=== PATIENT | female | born 1990 | race Caucasian/White ===

== ENCOUNTER 2016-12-08 10:45 | Emergency (ER) | payer BC, OTHER ==
[~2016-12-08 10:45] MED LIST: OXYMETAZOLINE 0.05% NASL SPRAY 15 ML ONE
[2016-12-08] MEDS ORDERED: OXYMETAZOLINE 0.05% NASL SPRAY 15 ML NASAL STA (13:17)
--- NOTE | 2016-12-08 13:17 | ED ---
ENT HPI - General Chief complaint: ENT Stated complaint: nose bleed Time Seen by Provider: 12/08/16 13:05 Source: patient, RN notes reviewed Mode of arrival: ambulatory Limitations: no limitations - History of Present Illness Initial comments: 26 yo female presents to the ER with a chief complaint of epistaxis. Patient states that she had much congestion. Patient states she's been running her nose is been having sneezing. Patient states that she'll get some blood with this that she was concerned. Patient denies any history of this before. There is no falls or injuries. She states that she Soft tissue just concerned about the bleeding so she thought that she should be evaluated. Patient states she is not currently having any other symptoms at this time. Patient denies any recent fever, chills, shortness of breath, chest pain, back pain, abdominal pain , nausea vomiting, numbness or tingling, dysuria or hematuria, constipation or diarrhea, headaches or visual changes, or any other current symptoms. - Related Data Home Medications Medication Instructions Recorded Confirmed No Known Home Medications [No 01/01/14 01/01/14 Known Home Medications] Allergies Allergy/AdvReac Type Severity Reaction Status Date / Time No Known Allergies Allergy Verified 01/01/14 09:18 Review of Systems ROS Statement: Those systems with pertinent positive or pertinent negative responses have been documented in the HPI. ROS Other: All systems not noted in ROS Statement are negative. Past Medical History Past Medical History: No Reported History History of Any Multi-Drug Resistant Organisms: None Reported Past Surgical History: No Surgical Hx Reported Past Psychological History: No Psychological Hx Reported Smoking Status: Never smoker Past Alcohol Use History: None Reported Past Drug Use History: None Reported General Exam - General Exam Comments Initial Comments: General exam: Alert, active, comfortable in no apparent distress Head: Normocephalic Eyes: Normal reaction of pupils, equal size, normal range of extraocular motion Ears: normal external ear canals, pink tympanic membranes with normal cone of light Nose: Patient does appear to have evidence of previously there is currently controlled to bilateral Debbie box plexus Throat: no erythema or exudates with normal sized tonsils Neck: no masses, no nuchal rigidity Chest: no chest wall deformity Lungs: equal air entry with no crackles or wheeze CVS: S1 and S2 normal with no audible mumurs, regular rhythm Abdomen: no hepatosplenomegaly, normal bowel sounds, no guarding or rigidity Spine: no scoliosis or deformity Skin: no rashes Neurological: No focal deficits, tone is normal in all 4 extremities Limitations: no limitations Course Vital Signs 12/08/16 10:49 Temperature 97.4 F L Pulse Rate 79 Respiratory 18 Rate Blood Pressure 132/83 O2 Sat by Pulse 100 Oximetry Medical Decision Making - Medical Decision Making 36-year-old female presents emergency department with a chief complaint of epistaxis. At this time we will give the patient aspirin. We discussed nasal clamp. We discussed care for this. We discussed continuing to apply appropriate moisture to the area. We did discuss return parameters and Follow- up. Patient states she understood all questions were answered. She'll be discharged. Disposition Clinical Impression: Epistaxis Disposition: HOME SELF-CARE Condition: Stable Instructions: Nosebleed (ED) Additional Instructions: Please use medication as discussed. Please follow up with family doctor if symptoms have not improved over the next two days. Please return to the emergency room if your symptoms increase or worsen or for any other concerns. Referrals: Dontrell Bangura DO [Primary Care Provider] - 1-2 days Time of Disposition: 13:16
[2016-12-08 13:24] VITALS: BP 130/78; PULSE 84; RESP 20; TEMP 98
== END 2016-12-08 13:24 | disposition home or self-care (01) ==
LOC: EC 10:45
DX: R04.0 Epistaxis (principal)
CPT/HCPCS: 99283

== ENCOUNTER 2017-03-26 11:02 | Emergency (ER) | payer BC ==
--- NOTE | 2017-03-26 11:39 | ED ---
General Adult HPI - General Chief complaint: Extremity Problem,Nontraumatic Stated complaint: feet swelliing Time Seen by Provider: 03/26/17 11:17 Source: patient, RN notes reviewed Mode of arrival: ambulatory Limitations: no limitations - History of Present Illness Initial comments: Patient 26-year-old female who presents emergency room today with a chief complaint of bilateral leg swelling. She does admit to swelling down to her ankle since that there bilaterally tender. She states that there is increased tenderness on the left compared to the right. She denies any injury or trauma. 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 She denies any pain last night when she was working but woke up this morning feeling like this. She denies any other complaints or symptoms at this time. Patient denies any recent fever, chills, shortness of breath, chest pain, back pain, abdominal pain, nausea or vomiting, numbness or tingling, dysuria or hematuria, constipation or diarrhea, headaches or visual changes, or any other complaints. - Related Data Home Medications Medication Instructions Recorded Confirmed No Known Home Medications [No 01/01/14 03/26/17 Known Home Medications] Allergies Allergy/AdvReac Type Severity Reaction Status Date / Time No Known Allergies Allergy Verified 03/26/17 11:31 Review of Systems ROS Statement: Those systems with pertinent positive or pertinent negative responses have been documented in the HPI. ROS Other: All systems not noted in ROS Statement are negative. Past Medical History Past Medical History: No Reported History History of Any Multi-Drug Resistant Organisms: None Reported Past Surgical History: No Surgical Hx Reported Past Psychological History: No Psychological Hx Reported Smoking Status: Never smoker Past Alcohol Use History: None Reported Past Drug Use History: None Reported General Exam - General Exam Comments Initial Comments: General: The patient is awake and alert, in no distress, and does not appear acutely ill. Eye: Pupils are equal, round and reactive to light, extra-ocular movements are intact. No nystagmus. There is normal conjunctiva bilaterally. No signs of icterus. Ears, nose, mouth and throat: There are moist mucous membranes and no oral lesions. Neck: The neck is supple, there is no tenderness or JVD. Cardiovascular: There is a regular rate and rhythm. No murmur, rub or gallop is appreciated. Respiratory: Lungs are clear to auscultation, respirations are non-labored, breath sounds are equal. No wheezes, stridor, rales, or rhonchi. Gastrointestinal: Soft, non-distended, non-tender abdomen without masses or organomegaly noted. There is no rebound or guarding present. No CVA tenderness. Bowel sounds are unremarkable. Musculoskeletal: Full range of motion. Does have bilateral ankle swelling. No bony tenderness. Strength 5/5. Sensation intact. Pulses equal bilaterally 2+ . Neurological: A&O x 3. CN II-XII intact, There are no obvious motor or sensory deficits. Coordination appears grossly intact. Speech is normal. Skin: Skin is warm and dry and no rashes or lesions are noted. Psychiatric: Cooperative, appropriate mood & affect, normal judgment. Limitations: no limitations Course Vital Signs 03/26/17 11:03 Temperature 97.1 F L Pulse Rate 67 Respiratory 16 Rate Blood Pressure 115/61 O2 Sat by Pulse 100 Oximetry Medical Decision Making - Medical Decision Making Case discussed in detail with attending physician Dr. Torres. Patient reexamined at this time shows no signs of distress resting comfortably. Patient labs been reviewed. Negative BNP. Negative CRP. Remaining labs reviewed and are unremarkable. EKG shows normal sinus rhythm. Patient's ultrasound negative for any evidence of DVT. Patient's chest x-rays been reviewed unremarkable. Patient will given a single dose of Lasix here the emergency room discharged home to follow-up the family doctor next 2 days. Advised to elevate her legs. Advised return for any other concerns. - Lab Data Result diagrams: 03/26/17 11:47 03/26/17 11:47 Lab Results 03/26/17 03/26/17 03/26/17 Range/Units 11:47 11:47 11:47 WBC 8.5 (3.8-10.6) k/uL RBC 3.94 (3.80-5.40) m/uL Hgb 12.2 (11.4-16.0) gm/dL Hct 36.1 (34.0-46.0) % MCV 91.8 (80.0-100.0) fL MCH 31.0 (25.0-35.0) pg MCHC 33.8 (31.0-37.0) g/dL RDW 12.8 (11.5-15.5) % Plt Count 288 (150-450) k/uL Neutrophils % 73 % Lymphocytes % 20 % Monocytes % 4 % Eosinophils % 1 % Basophils % 0 % Neutrophils # 6.3 (1.3-7.7) k/uL Lymphocytes # 1.7 (1.0-4.8) k/uL Monocytes # 0.4 (0-1.0) k/uL Eosinophils # 0.1 (0-0.7) k/uL Basophils # 0.0 (0-0.2) k/uL Sodium 140 (137-145) mmol/L Potassium 3.8 (3.5-5.1) mmol/L Chloride 107 (98-107) mmol/L Carbon Dioxide 25 (22-30) mmol/L Anion Gap 8 mmol/L BUN 8 (7-17) mg/dL Creatinine 0.70 (0.52-1.04) mg/dL Est GFR (MDRD) Af Amer >60 (>60 ml/min/1.73 sqM) Est GFR (MDRD) Non-Af >60 (>60 ml/min/1.73 sqM) Glucose 88 (74-99) mg/dL Calcium 9.0 (8.4-10.2) mg/dL Total Bilirubin 0.4 (0.2-1.3) mg/dL AST 24 (14-36) U/L ALT 37 (9-52) U/L Alkaline Phosphatase 61 (38-126) U/L C-Reactive Protein 6.7 (<10.0) mg/L NT-Pro-B Natriuret Pep pg/mL Total Protein 6.1 L (6.3-8.2) g/dL Albumin 3.7 (3.5-5.0) g/dL Urine Color Urine Appearance (Clear) Urine pH (5.0-8.0) Ur Specific Moore (1.001-1.035) Urine Protein (Negative) Urine Glucose (UA) (Negative) Urine Ketones (Negative) Urine Blood (Negative) Urine Nitrite (Negative) Urine Bilirubin (Negative) Urine Urobilinogen (<2.0) mg/dL Ur Leukocyte Esterase (Negative) Urine RBC (0-5) /hpf Urine WBC (0-5) /hpf Ur Squamous Epith Cells (0-4) /hpf Urine Bacteria (None) /hpf Urine Mucus (None) /hpf Urine HCG, Qual Not Detected (Not Detectd) 03/26/17 03/26/17 Range/Units 11:47 11:47 WBC (3.8-10.6) k/uL RBC (3.80-5.40) m/uL Hgb (11.4-16.0) gm/dL Hct (34.0-46.0) % MCV (80.0-100.0) fL MCH (25.0-35.0) pg MCHC (31.0-37.0) g/dL RDW (11.5-15.5) % Plt Count (150-450) k/uL Neutrophils % % Lymphocytes % % Monocytes % % Eosinophils % % Basophils % % Neutrophils # (1.3-7.7) k/uL Lymphocytes # (1.0-4.8) k/uL Monocytes # (0-1.0) k/uL Eosinophils # (0-0.7) k/uL Basophils # (0-0.2) k/uL Sodium (137-145) mmol/L Potassium (3.5-5.1) mmol/L Chloride (98-107) mmol/L Carbon Dioxide (22-30) mmol/L Anion Gap mmol/L BUN (7-17) mg/dL Creatinine (0.52-1.04) mg/dL Est GFR (MDRD) Af Amer (>60 ml/min/1.73 sqM) Est GFR (MDRD) Non-Af (>60 ml/min/1.73 sqM) Glucose (74-99) mg/dL Calcium (8.4-10.2) mg/dL Total Bilirubin (0.2-1.3) mg/dL AST (14-36) U/L ALT (9-52) U/L Alkaline Phosphatase (38-126) U/L C-Reactive Protein (<10.0) mg/L NT-Pro-B Natriuret Pep 46 pg/mL Total Protein (6.3-8.2) g/dL Albumin (3.5-5.0) g/dL Urine Color Yellow Urine Appearance Cloudy H (Clear) Urine pH 7.0 (5.0-8.0) Ur Specific Moore 1.019 (1.001-1.035) Urine Protein Trace H (Negative) Urine Glucose (UA) Negative (Negative) Urine Ketones Negative (Negative) Urine Blood Negative (Negative) Urine Nitrite Negative (Negative) Urine Bilirubin Negative (Negative) Urine Urobilinogen <2.0 (<2.0) mg/dL Ur Leukocyte Esterase Large H (Negative) Urine RBC 1 (0-5) /hpf Urine WBC 7 H (0-5) /hpf Ur Squamous Epith Cells 16 H (0-4) /hpf Urine Bacteria Rare H (None) /hpf Urine Mucus Few H (None) /hpf Urine HCG, Qual (Not Detectd) Disposition Clinical Impression: Leg edema Disposition: HOME SELF-CARE Condition: Good Instructions: Leg Edema (ED) Additional Instructions: Please continue to elevate your legs and follow family doctor the next 2 days. Please return for any other concerns. Referrals: Dontrell Bangura DO [Primary Care Provider] - 1-2 days Time of Disposition: 13:36
[2017-03-26 11:59] LABS: Basophils % (A) 0 %; CH 31.6; CHCM 34.5; Eosinophils # (A) 0.1 k/uL (0-0.7); Eosinophils % (A) 1 %; HCT 36.1 % (34.0-46.0); HDW 2.08; HGB 12.2 gm/dL (11.4-16.0); Luc # (Auto) 0.12; Luc % (Auto) 1; Lymphocytes # (A) 1.7 k/uL (1.0-4.8); Lymphocytes % (A) 20 %; MCHC 33.8 g/dL (31.0-37.0); MCV 91.8 fL (80.0-100.0); Mean Platelet Volume 7.8; Monocytes # (A) 0.4 k/uL (0-1.0); Monocytes % (A) 4 %; Neutrophils # (A) 6.3 k/uL (1.3-7.7); Neutrophils % (A) 73 %; RBC 3.94 m/uL (3.80-5.40); RDW 12.8 % (11.5-15.5); WBC 8.5 k/uL (3.8-10.6)
[2017-03-26 12:03] LABS: Appearance,Urine Cloudy (Clear); Bacteria,Urine Rare /hpf; Bilirubin,Urine Negative (Negative); Glucose,Urine (UA) Negative (Negative); Ketones,Urine Negative (Negative); Leukocyte Esterase,Urine Large (Negative); Mucus,Urine Few /hpf; Nitrite,Urine Negative (Negative); Particle Count 18159; Protein,Urine Trace (Negative); RBC,Urine 1 /hpf (0-5); Specific Gravity,Urine 1.019 (1.001-1.035); Squamous Epithelial Cell,Urine 16 /hpf (0-4); UA Billing (MACRO vs. MICRO) MICRO; Urobilinogen,Urine <2.0 mg/dL (<2.0); WBC,Urine 7 /hpf (0-5)
[2017-03-26 12:27] LABS: ALT 37 U/L (9-52); AST 24 U/L (14-36); Alkaline Phosphatase 61 U/L (38-126); Anion Gap 8 mmol/L; Blood Urea Nitrogen 8 mg/dL (7-17); C Reactive Protein 6.7 mg/L (<10.0); Carbon Dioxide 25 mmol/L (22-30); Chloride 107 mmol/L (98-107); Glucose 88 mg/dL (74-99); Non-African American GFR(MDRD) >60 (>60 ml/min/1.73 sqM); Potassium 3.8 mmol/L (3.5-5.1); Sodium 140 mmol/L (137-145); Total Bilirubin 0.4 mg/dL (0.2-1.3); Total Protein 6.1 g/dL (6.3-8.2)
--- NOTE | 2017-03-26 12:44 | US ---
EXAMINATION TYPE: US venous doppler duplex LE BI DATE OF EXAM: 03/26/2017 12:35 PM COMPARISON: Bilateral lower extremity venous ultrasound September 04, 2012 CLINICAL HISTORY: Pain. SIDE PERFORMED: Bilateral TECHNIQUE: The lower extremity deep venous system is examined utilizing real time linear array sonog jorge with graded compression, doppler sonography and color-flow sonography. VESSELS IMAGED: External Iliac Vein (EIV) Common Femoral Vein Deep Femoral Vein Greater Saphenous Vein * Femoral Vein Popliteal Vein Small Saphenous Vein * Proximal Calf Veins (* superficial vessels) Morbidly obese patient makes evaluation suboptimal. Right Leg: Negative for DVT Left Leg: Negative for DVT Grayscale, color doppler, spectral doppler imaging performed of the deep veins of the lower extremiti es. There is normal flow, compressibility, vascular waveforms. IMPRESSION: No evidence of acute DVT in bilateral lower extremities on current study.
[2017-03-26] MEDS ORDERED: FUROSEMIDE 10 MG/ML 4 ML VIAL IV STA (13:34)
--- NOTE | 2017-03-26 13:35 | XR ---
EXAMINATION TYPE: XR chest 2V DATE OF EXAM: 03/26/2017 COMPARISON: 02/28/2010 INDICATION: Leg swelling TECHNIQUE: Frontal and lateral views of the chest are obtained. FINDINGS: The heart size is normal. The pulmonary vasculature is normal. The lungs are clear. IMPRESSION: 1. No acute pulmonary process.
[2017-03-26 14:10] VITALS: BP 114/59; PULSE 76; RESP 17; TEMP 98.2
== END 2017-03-26 14:10 | disposition home or self-care (01) ==
LOC: EC 11:02
DX: R60.0 Localized edema (principal)
CPT/HCPCS: 99284; 96374; 36415; 93005; 83880; 80053; 85025; 86140; 81001; 81025; 71020; 93970; J1940

== ENCOUNTER 2018-03-16 14:43 | Emergency (ER) | payer BC ==
--- NOTE | 2018-03-16 14:53 | ED ---
Skin/Abscess/FB HPI - General Chief complaint: Skin/Abscess/Foreign Body Stated complaint: bug bite Time Seen by Provider: 03/16/18 14:47 Source: patient, RN notes reviewed, old records reviewed Mode of arrival: ambulatory Limitations: no limitations - History of Present Illness Initial comments: 27-year-old female presents return today. Of a insect bite over the right knee. Patient reports that she started noticed this yesterday. She reports is warm and hot to touch. She reports the area of erythema has been swelling. Patient states that she has had no fevers or chills. She denies any other areas of bites. She reports that the area is pruritic.Patient denies any recent fever, chills, shortness of breath, chest pain, back pain, abdominal pain , nausea vomiting, numbness or tingling, dysuria or hematuria, constipation or diarrhea, headaches or visual changes, or any other current symptoms - Related Data Previous Rx's Medication Instructions Recorded Sulfamethox-Tmp 800-160Mg [Bactrim 1 tab PO DAILY #20 tab 03/16/18 DS 800-160 mg] methylPREDNISolone [Medrol Dose 4 mg PO DIRECTED #1 pack 03/16/18 Pack] Allergies Allergy/AdvReac Type Severity Reaction Status Date / Time No Known Allergies Allergy Verified 03/16/18 14:47 Review of Systems ROS Statement: Those systems with pertinent positive or pertinent negative responses have been documented in the HPI. ROS Other: All systems not noted in ROS Statement are negative. Past Medical History Past Medical History: No Reported History History of Any Multi-Drug Resistant Organisms: None Reported Past Surgical History: No Surgical Hx Reported Past Psychological History: No Psychological Hx Reported Smoking Status: Never smoker Past Alcohol Use History: None Reported Past Drug Use History: None Reported General Exam - General Exam Comments Initial Comments: This Patient is a 27-year-old female. Alert and oriented. No acute distress. Limitations: no limitations General appearance: alert, in no apparent distress Head exam: Present: atraumatic, normocephalic, normal inspection Eye exam: Present: normal appearance, PERRL, EOMI. Absent: scleral icterus, conjunctival injection, periorbital swelling ENT exam: Present: normal exam, mucous membranes moist Neck exam: Present: normal inspection. Absent: tenderness, meningismus, lymphadenopathy Respiratory exam: Present: normal lung sounds bilaterally. Absent: respiratory distress, wheezes, rales, rhonchi, stridor Cardiovascular Exam: Present: regular rate, normal rhythm, normal heart sounds. Absent: systolic murmur, diastolic murmur, rubs, gallop, clicks GI/Abdominal exam: Present: soft, normal bowel sounds. Absent: distended, tenderness, guarding, rebound, rigid Extremities exam: Present: normal inspection, full ROM, normal capillary refill , other (Patient is a 3 cm area of erythema and superficial swelling consistent with cellulitis over the right knee. Area is warm to touch. ). Absent: tenderness, pedal edema, joint swelling, calf tenderness Back exam: Present: normal inspection Neurological exam: Present: alert, oriented X3, CN II-XII intact Psychiatric exam: Present: normal affect, normal mood Skin exam: Present: warm, dry, intact, normal color. Absent: rash Course Vital Signs 03/16/18 14:45 Temperature 98.2 F Pulse Rate 66 Respiratory 18 Rate Blood Pressure 118/70 O2 Sat by Pulse 97 Oximetry Medical Decision Making - Medical Decision Making This Patient is a 7-year-old female presents with redness and swelling over the right knee after a bug bite. Patient was appears to have a cellulitic infection over the area. I did use an ultrasound machine over the area to protect for any abscess. No abscess or drainable fluid filled pocket noted at this time. Patient will be started on some Bactrim and Medrol Dosepak for cough or any antihistamine and ALLERGIC reaction for the redness and swelling. Discussed icing the area. Discussed return parameters. Patient has worsening redness or swelling to return Disposition Clinical Impression: Cellulitis Disposition: HOME SELF-CARE Condition: Good Instructions: Cellulitis (ED), General Allergic Reaction (ED) Additional Instructions: Patient is follow-up with primary care physician. Patient should apply ice over the area. Also use Benadryl and hydrocortisone cream over the area. Anabiotic as prescribed. Return to emergency department if any alarming signs or symptoms occur. Prescriptions: methylPREDNISolone [Medrol Dose Pack] 4 mg PO DIRECTED #1 pack Sulfamethox-Tmp 800-160Mg [Bactrim DS 800-160 mg] 1 tab PO DAILY #20 tab Is patient prescribed a controlled substance at d/c from ED?: No Referrals: Dontrell Bangura DO [Primary Care Provider] - 1-2 days Time of Disposition: 15:07
[2018-03-16 15:18] VITALS: BP 122/78; PULSE 61; RESP 16; TEMP 98.7
== END 2018-03-16 15:18 | disposition home or self-care (01) ==
LOC: EC 14:43
DX: L03.115 Cellulitis of right lower limb (principal); R05 Cough; W57.XXXA Bitten or stung by nonvenomous insect and other nonvenomous arthropods, initial encounter
CPT/HCPCS: 99283

== ENCOUNTER 2018-05-06 07:42 | Emergency (ER) | payer BC ==
[2018-05-06 07:48] VITALS: BP 113/66; PULSE 87; RESP 18; TEMP 97.9
--- NOTE | 2018-05-06 08:03 | ED ---
Lower Extremity Injury HPI - General Chief Complaint: Extremity Injury, Lower Stated Complaint: Knee injury Time Seen by Provider: 05/06/18 07:54 Source: patient, RN notes reviewed Mode of arrival: ambulatory Limitations: no limitations - History of Present Illness Initial Comments: 27-year-old female presents emergency Department chief complaint of right knee pain. Patient states that she was at a basketball court and states her foot stuck she tripped forward with all her weight landing on her right knee. Patient states that she has pain on the lateral posterior aspect of her right knee. She's had no pain in her quadrant hamstring no pain in her calf. Patient states his hurts to walk on her knee. She does have an abrasion but her tetanus is up-to-date. Patient denies any paresthesias denies any head injury no other muscle skeletal injury noted from the fall. - Related Data Previous Rx's Medication Instructions Recorded Ibuprofen [Motrin] 600 mg PO Q8HR PRN #30 tab 05/06/18 Allergies Allergy/AdvReac Type Severity Reaction Status Date / Time No Known Allergies Allergy Verified 05/06/18 08:37 Review of Systems ROS Statement: Those systems with pertinent positive or pertinent negative responses have been documented in the HPI. ROS Other: All systems not noted in ROS Statement are negative. Past Medical History Past Medical History: No Reported History History of Any Multi-Drug Resistant Organisms: None Reported Past Surgical History: No Surgical Hx Reported Past Psychological History: No Psychological Hx Reported Smoking Status: Never smoker Past Alcohol Use History: None Reported Past Drug Use History: None Reported General Exam Limitations: no limitations General appearance: alert, in no apparent distress Head exam: Present: atraumatic, normocephalic, normal inspection Neck exam: Present: normal inspection, full ROM. Absent: tenderness, meningismus, lymphadenopathy Respiratory exam: Present: normal lung sounds bilaterally. Absent: respiratory distress, wheezes, rales, rhonchi, stridor Cardiovascular Exam: Present: regular rate, normal rhythm, normal heart sounds. Absent: systolic murmur, diastolic murmur, rubs, gallop, clicks Extremities exam: Present: other (Right knee posterior lateral aspect area is firm with palpation appears to be hematoma, patient has full range of motion full-strength neurovascular intact there is mild tenderness to the lateral portion pain with varus) Skin exam: Present: warm, dry, intact, normal color. Absent: rash Course Vital Signs 05/06/18 07:46 Temperature 97.9 F Pulse Rate 87 Respiratory 18 Rate Blood Pressure 113/66 O2 Sat by Pulse 98 Oximetry Medical Decision Making - Medical Decision Making 27-year-old female presents emergency from for right knee injury. X-rays were reviewed. There is mild and here soft tissue swelling. Patient physically has pain and swelling in the posterior lateral portion. Patient was placed in knee immobilizer follow-up with orthopedics for an MRI. Return parameters were discussed. Disposition Clinical Impression: Knee sprain Disposition: HOME SELF-CARE Condition: Stable Instructions: Knee Sprain (ED) Additional Instructions: Please return to the Emergency Department if symptoms worsen or any other concerns. Prescriptions: Ibuprofen [Motrin] 600 mg PO Q8HR PRN #30 tab PRN Reason: Pain Is patient prescribed a controlled substance at d/c from ED?: No Referrals: Dontrell Bangura DO [Primary Care Provider] - 1-2 days Pranay Pedraza MD [STAFF PHYSICIAN] - 1-2 days Time of Disposition: 09:02
--- NOTE | 2018-05-06 08:19 | XR ---
EXAMINATION TYPE: XR knee complete RT DATE OF EXAM: 05/06/2018 COMPARISON: NONE HISTORY: 27-year-old female with fall and pain TECHNIQUE: 3 views FINDINGS: Mild anterior soft tissue swelling. No significant knee joint effusion. No acute fracture, subluxatio n, or dislocation seen. Extensor mechanism appears intact. IMPRESSION: Mild anterior soft tissue swelling. No acute osseous abnormality seen.
== END 2018-05-06 09:13 | disposition home or self-care (01) ==
LOC: EC 07:42
DX: S83.91XA Sprain of unspecified site of right knee, initial encounter (principal); W22.8XXA Striking against or struck by other objects, initial encounter; Y92.310 Basketball court as the place of occurrence of the external cause
CPT/HCPCS: 99283

== ENCOUNTER 2019-04-25 18:28 | Emergency (ER) | payer BC ==
[2019-04-25 19:33] VITALS: BP 132/73; PULSE 81; RESP 18; TEMP 97.9
--- NOTE | 2019-04-25 20:40 | XR ---
EXAMINATION TYPE: XR chest 2V DATE OF EXAM: 04/25/2019 COMPARISON: 03/26/2017 HISTORY: Cough and congestion TECHNIQUE: Frontal and lateral views of the chest are obtained. FINDINGS: Heart and mediastinum are normal. Lungs are clear. Diaphragm is normal. Bony thorax appear s normal. IMPRESSION: Normal chest. No change.
--- NOTE | 2019-04-25 21:04 | ED ---
URI HPI - General Chief Complaint: Upper Respiratory Infection Stated Complaint: congestion, cough Time Seen by Provider: 04/25/19 20:27 Source: patient, family Mode of arrival: ambulatory Limitations: no limitations - History of Present Illness Initial Comments: 28-year-old female no significant past medical history presents emergency department for cc of cough x 3 weeks and nasal congestion. Patient denies fever, states cough dry some clear phlegm. Patient denies any chest pain shortness of breath and leg swelling. Patient denies sore throat, or ear pain. Denies fever, flu like symptoms, abdominal pain, vomiting, diarrhea.Denies . remaining ROS (-). Upon arrival patient appears well. No signs of toxicity. VS WNL. - Related Data Previous Rx's Medication Instructions Recorded Ibuprofen [Motrin] 600 mg PO Q8HR PRN #30 tab 05/06/18 Benzonatate [Tessalon Perles] 100 mg PO BID PRN 5 Days #10 cap 04/25/19 predniSONE 20 mg PO DAILY 5 Days #5 tab 04/25/19 Allergies Allergy/AdvReac Type Severity Reaction Status Date / Time No Known Allergies Allergy Verified 04/25/19 19:33 Review of Systems ROS Statement: Those systems with pertinent positive or pertinent negative responses have been documented in the HPI. ROS Other: All systems not noted in ROS Statement are negative. Past Medical History Past Medical History: No Reported History Additional Past Medical History / Comment(s): afib - no meds History of Any Multi-Drug Resistant Organisms: None Reported Past Surgical History: No Surgical Hx Reported Past Psychological History: No Psychological Hx Reported Smoking Status: Never smoker Past Alcohol Use History: None Reported Past Drug Use History: None Reported General Exam - General Exam Comments Initial Comments: General: The patient is awake and alert, in no distress, and does not appear acutely ill. Eye: +3 mm pupils are equal, round and reactive to light, extra-ocular movements are intact. No nystagmus. There is normal conjunctiva bilaterally. No signs of icterus. No photophobia Ears, nose, mouth and throat: There are moist mucous membranes and no oral lesions. Oropharynx was not erythematous there is no tonsillar enlargement exudates or lesions. Uvula midline. Tympanic membranes are not erythematous or is no effusions bulging or retraction. No tenderness to palpation of the mastoid. No anterior cervical lymphadenopathy. Rhinorrhea, clear and bilateral nares. No tripoding, no drooling. Neck: The neck is supple, there is no tenderness or JVD. No nuchal rigidity Cardiovascular: There is a regular rate and rhythm. No murmur, rub or gallop is appreciated. Respiratory: Lungs are clear to auscultation, respirations are non-labored, breath sounds are equal. No wheezes, stridor, rales, or rhonchi. No retractions or abdominal breathing. Dry cough Gastrointestinal: Soft, non-distended, non-tender abdomen without masses or organomegaly noted. There is no rebound or guarding present. Bowel sounds are unremarkable. Musculoskeletal: Normal ROM, no tenderness. Strength 5/5. Sensation intact. Radial pulses equal bilaterally 2+. Neurological: A&O x 3. CN II-XII intact grissky, There are no obvious motor or sensory deficits. Coordination appears grossly intact. Speech appears normal, no muffling. Skin: Skin is warm and dry and no rashes or lesions are noted. No extremity edema Psychiatric: Cooperative Limitations: no limitations Course Vital Signs 04/25/19 19:32 Temperature 97.9 F Pulse Rate 81 Respiratory 18 Rate Blood Pressure 132/73 O2 Sat by Pulse 100 Oximetry Medical Decision Making - Medical Decision Making Nontoxic appearing 28yo female presenting to the ER for cc of cough, congestion x 3 weeks. CXR (-) Lungs clear. Obvious URI symptoms. Nasal congestion. Afebrile. At this time feel patient has bronchitis, most likely viral. Patient given RX for tessalon perles and steroids. PCP f/u. I discussed the case with attending provider who is agreeable with care plan and discharge. Disposition Clinical Impression: Cough, Congestion of nasal sinus, Bronchitis Disposition: HOME SELF-CARE Condition: Good Instructions (If sedation given, give patient instructions): Upper Respiratory Infection (ED), Acute Bronchitis (ED) Additional Instructions: Please use medication as discussed. Please follow-up with family doctor in the next 2 days. Please return to emergency room if the symptoms increase or worsen or for any other concerns. Prescriptions: predniSONE 20 mg PO DAILY 5 Days #5 tab Benzonatate [Tessalon Perles] 100 mg PO BID PRN 5 Days #10 cap PRN Reason: Cough Is patient prescribed a controlled substance at d/c from ED?: No Referrals: Dontrell Bangura DO [Primary Care Provider] - 1-2 days Time of Disposition: 21:04
== END 2019-04-25 21:23 | disposition home or self-care (01) ==
LOC: EC 18:28
DX: J40 Bronchitis, not specified as acute or chronic (principal); I48.91 Unspecified atrial fibrillation
CPT/HCPCS: 71046; 99283

== ENCOUNTER 2019-08-22 13:53 | Emergency (ER) | payer BC ==
[2019-08-22 13:57] VITALS: RESP 22
[2019-08-22] MEDS ORDERED: IBUPROFEN 600 MG TAB PO STA (14:27)
--- NOTE | 2019-08-22 14:38 | ED ---
General Adult HPI - General Chief complaint: Fever Stated complaint: Fever/cough Time Seen by Provider: 08/22/19 14:07 Source: patient, RN notes reviewed, old records reviewed Mode of arrival: ambulatory Limitations: no limitations - History of Present Illness Initial comments: 28-year-old female patient past history of reported paroxysmal atrial fibrillation on any medications presents to ED for chief complaint 2 days of cough congestion fever. Denies any nausea or vomiting. Patient denies any chance of being . Denies any other complaints at this time. Systemic: Pt denies fatigue, rash. Pt denies weakness, night sweats, weight loss. Neuro: Pt denies headache, visual disturbances, syncope or pre-syncope. HEENT: Pt denies ocular discharge or irritation, otalgia, rhinorrhea, pharyngitis or notable lymphadenopathy. Cardiopulmonary: Pt denies chest pain, SOB, heart palpitations, dyspnea on exertion. Abdominal/GI: Pt denies abdominal pain, n/v/d. : Pt denies dysuria, burning w/ urination, frequency/urgency. Denies new onset urinary or bowel incontinence. MSK: Pt denies myalgia, loss of strength or function in extremities. Neuro: Pt denies new onset weakness, paresthesias. - Related Data Previous Rx's Medication Instructions Recorded Ibuprofen [Motrin] 600 mg PO Q8HR PRN #30 tab 05/06/18 Benzonatate [Tessalon Perles] 100 mg PO BID PRN 5 Days #10 cap 04/25/19 predniSONE [Deltasone] 20 mg PO DAILY 5 Days #5 tab 04/25/19 Nystatin 100,000 Unit/gm Powd 1 applic TOPICAL BID 7 Days #1 tube 08/22/19 [Mycostatin Powder] Oseltamivir [Tamiflu] 75 mg PO Q12HR 5 Days #9 cap 08/22/19 Allergies Allergy/AdvReac Type Severity Reaction Status Date / Time No Known Allergies Allergy Verified 08/22/19 13:57 Review of Systems ROS Statement: Those systems with pertinent positive or pertinent negative responses have been documented in the HPI. ROS Other: All systems not noted in ROS Statement are negative. Past Medical History Past Medical History: Atrial Fibrillation Additional Past Medical History / Comment(s): afib - no meds History of Any Multi-Drug Resistant Organisms: None Reported Past Surgical History: No Surgical Hx Reported Past Psychological History: No Psychological Hx Reported Smoking Status: Never smoker Past Alcohol Use History: None Reported Past Drug Use History: None Reported General Exam - General Exam Comments Initial Comments: Constitutional: NAD, AOX3, Pt has pleasant affect. HEENT: NC/AT, trachea midline, neck supple, no lymphadenopathy. Posterior pharynx non erythematous, without exudates. External ears appear normal, without discharge. Mucous membranes moist. Eyes PERRLA, EOM intact. There is no scleral icterus. No pallor noted. Cardiopulmonary: RRR, no murmurs, rubs or gallops, no JVD noted. Lungs CTAB in anterior and posterior armijo. No peripheral edema. Abdominal exam: Abdomen soft and non-distended. Abdomen non-tender to palpation in all 4 quadrants. Bowel sounds active in LLQ. No hepatosplenomegaly. No ecchymosis Neuro: CN II-XII grossly intact. No nuchal rigidity. No raccon eyes, no rodrigues sign, no hemotympanum. No cervical spinal tenderness. MSK: No posterior calf tenderness bilaterally, homans sign negative bilaterally. Posterior tibialis and radial pulse +2 bilaterally. Sensation intact in upper and lower extremities. Full active ROM in upper and lower extremities, 5/5 stregnth. Derm: Intetrigo noted underneath both breasts. Chaperogned by CONNIE Duffy. Limitations: no limitations Course Vital Signs 08/22/19 08/22/19 13:55 15:11 Temperature 101.6 F H 99.2 F Pulse Rate 105 H 103 H Respiratory 22 22 Rate Blood Pressure 118/67 114/62 O2 Sat by Pulse 95 97 Oximetry Medical Decision Making - Medical Decision Making 28-year-old female patient past history of reported paroxysmal atrial fibrillation on any medications presents to ED for chief complaint 2 days of cough congestion fever. Denies any nausea or vomiting. Patient denies any chance of being . Denies any other complaints at this time. Patient vital signs displayed mild fever, mild tachycardia. Patient administered antipyretic. Physical exam is absolutely acute pathology. Laboratory investigations revealed influenza B to be positive. UA is negative. HCG is negative. Chest x-ray displayed no acute cardiopulmonary process. Patient initiated on Tamiflu. I discharge patient did ask me to examine a rash underneath her breasts. Was chaperoned by CONNIE Duffy, does appear to be intertrigo. Patient will be initiated on nystatin which was sent patient's pharmacy. We'll be discharged for follow-up with primary care provider will return to ER if condition worsens. Case discussed with Dr. Torres. - Lab Data Lab Results 08/22/19 08/22/19 08/22/19 Range/Units 14:00 14:46 14:46 Urine Color Yellow Urine Appearance Cloudy H (Clear) Urine pH 6.5 (5.0-8.0) Ur Specific [place] 1.027 (1.001-1.035) Urine Protein Trace H (Negative) Urine Glucose (UA) Negative (Negative) Urine Ketones Negative (Negative) Urine Blood Negative (Negative) Urine Nitrite Negative (Negative) Urine Bilirubin Negative (Negative) Urine Urobilinogen <2.0 (<2.0) mg/dL Ur Leukocyte Esterase Small H (Negative) Urine RBC 4 (0-5) /hpf Urine WBC 1 (0-5) /hpf Ur Squamous Epith Cells 5 H (0-4) /hpf Urine Mucus Occasional H (None) /hpf Urine HCG, Qual Not Detected (Not Detectd) Influenza Type A RNA Not Detected (Not Detectd) Influenza Type B (PCR) Detected H (Not Detectd) - EKG Data -: EKG Interpreted by Me (and Dr. Torres) EKG Comments: Ventricular rate 101, NJ interval 136, QRS 72, QT/QTC 318 since 412. Sinus tachycardia, no concern for acute ischemia at this time. Disposition Clinical Impression: Influenza B, Intertrigo Disposition: HOME SELF-CARE Condition: Stable Instructions (If sedation given, give patient instructions): Fever in Adults (ED), Influenza (ED) Additional Instructions: Take medications as directed. Follow up with primary care provider tomorrow. Use Tylenol and Motrin for fever. Continue to drink lots of fluids. Return to ER if condition worsens. Keep area of rash clean and dry. Apply nystatin powder twice a day for the next week. Prescriptions: Nystatin 100,000 Unit/gm Powd [Mycostatin Powder] 1 applic TOPICAL BID 7 Days #1 tube Oseltamivir [Tamiflu] 75 mg PO Q12HR 5 Days #9 cap Is patient prescribed a controlled substance at d/c from ED?: No Referrals: Dontrell Bangura, [Primary Care Provider] - 1-2 days
--- NOTE | 2019-08-22 14:59 | XR ---
EXAMINATION TYPE: XR chest 2V DATE OF EXAM: 08/22/2019 COMPARISON: Prior chest x-ray 04/25/2019 HISTORY: Fever and cough TECHNIQUE: Frontal and lateral views of the chest are obtained. FINDINGS: There is no focal air space opacity, pleural effusion, or pneumothorax seen. The cardiac silhouette size is within normal limits. The osseous structures are intact. IMPRESSION: No acute cardiopulmonary process.
[2019-08-22 15:08] LABS: Appearance,Urine Cloudy (Clear); Bilirubin,Urine Negative (Negative); Blood,Urine Negative (Negative); Color,Urine Yellow; Glucose,Urine (UA) Negative (Negative); Ketones,Urine Negative (Negative); PH, Urine 6.5 (5.0-8.0); Protein,Urine Trace (Negative); Specific Gravity,Urine 1.027 (1.001-1.035); Urobilinogen,Urine <2.0 mg/dL (<2.0)
[2019-08-22 15:09] LABS: Leukocyte Esterase,Urine Small (Negative); Mucus,Urine Occasional /hpf; Nitrite,Urine Negative (Negative); RBC,Urine 4 /hpf (0-5); Squamous Epithelial Cell,Urine 5 /hpf (0-4); WBC,Urine 1 /hpf (0-5)
[2019-08-22 15:13] VITALS: BP 114/62; PULSE 103; TEMP 99.2
[2019-08-22] MEDS ORDERED: OSELTAMIVIR 75 MG CAP PO STA (15:22)
== END 2019-08-22 15:52 | disposition home or self-care (01) ==
LOC: EC 13:53
DX: J10.1 Influenza due to other identified influenza virus with other respiratory manifestations (principal); L30.4 Erythema intertrigo; R00.0 Tachycardia, unspecified
CPT/HCPCS: 71046; 81001; 81025; 87502; 93005; 99284

== ENCOUNTER 2020-08-23 06:47 | Day surgery (SDC) | payer BC ==
[2020-08-23 08:41] VITALS: RESP 16; TEMP 97.8
[2020-08-23 11:45] LABS: Glucose,CSF 60 mg/dL (40-70); Total Protein,CSF 25 mg/dL (12-60)
--- NOTE | 2020-08-23 11:59 | FL ---
EXAMINATION TYPE: FL guided lumbar puncture LP DATE OF EXAM: 08/23/2020 CLINICAL HISTORY: Headaches and visual changes. Abnormal exam by laundry routeman. TECHNIQUE: Fluoroscopic assisted lumbar puncture for fluid obtainment. A total of 4 minutes 46 second s of fluoroscopic time utilized. One spot image saved. COMPARISON: None. FINDINGS: Procedure explained to patient. Benefits, alternatives, and risks were discussed. Informed consent was then obtained. The overlying skin is cleansed with Betadine. Lidocaine is used as anesthetic into the skin and deepe r tissue. Under fluoroscopic guidance, several attempts with 22-gauge needle were unsuccessful in acc essing spinal canal using several approaches. There is finally success on paraspinal approach at L3 l evel using a 20-gauge 5 cm spinal needle. Exam more difficult due to patient's large body habitus. Th ere is rapid return of CSF. Due to technical difficulties with pressure mason, accurate pressures were unable to be obtained but are felt elevated. There is subsequent attainment of roughly 10-14 cc of CSF. Flow of CSF seen and overall diminished af ter some CSF obtainment. At this point needle was withdrawn. Patient tolerated procedure well without any immediate complication. Vital signs monitored before dur ing and after procedure were stable. Patient monitored for a few hours after procedure and then disch arged home in stable condition. IMPRESSION: As Above. Full Pathology results to follow.
[2020-08-23 12:17] VITALS: BP 124/62; PULSE 66
[2020-08-23 12:52] LABS: Appearance,CSF Clear; CSF Tube Number 4; Nucleated Cells, CSF 0 u/L (0-5); Red Blood Cell,CSF 79 u/L (0-10)
[2020-08-23 12:53] LABS: Red Blood Cell, CSF Fresh 100 %
== END 2020-08-23 12:25 | disposition home or self-care (01) ==
LOC: RADPROMAIN 06:47
PROVIDERS: ATTEND Psychiatry & Neurology Neurology
DX: R51.9 Headache, unspecified (principal)
CPT/HCPCS: 84157; 82945; 89050; 62328; J2001

== ENCOUNTER 2020-10-20 15:53 | Emergency (ER) | payer BC ==
--- NOTE | 2020-10-20 17:29 | XR ---
EXAMINATION TYPE: XR chest 2V DATE OF EXAM: 10/20/2020 COMPARISON: 08/22/2019 HISTORY: Short of breath. Cough. TECHNIQUE: 2 views FINDINGS: There is patchy airspace pneumonia bilaterally. Heart size is normal. Mediastinum is normal . There is no pleural effusion. IMPRESSION: There is new bilateral patchy pneumonia compared to old exam. Normal heart.
[2020-10-20] MEDS ORDERED: ACETAMINOPHEN TAB 500 MG TAB PO STA (19:31)
[2020-10-20 19:36] VITALS: RESP 18
--- NOTE | 2020-10-20 19:45 | ED ---
SOB HPI - General Chief Complaint: Shortness of Breath Stated Complaint: sob/cough Time Seen by Provider: 10/20/20 19:12 Source: patient Mode of arrival: ambulatory Limitations: no limitations - History of Present Illness Initial Comments: Review 1-year-old female presents emergency room also reported shortness of breath, cough and congestion for the past 4 days. Patient has also had a fever. Last dose of Tylenol was yesterday. She denies any chest pain. Denies history of underlying lung conditions. Admits to nausea without vomiting. Denies ab dominal pain. Admits to diarrhea. No concern for . No other alleviating, precipitating or modifying factors - Related Data Previous Rx's Medication Instructions Recorded Albuterol Inhaler [Ventolin Hfa 2 puff INHALATION RT-QID #1 inhaler 10/20/20 Inhaler] Albuterol Inhaler [Ventolin Hfa 2 puff INHALATION RT-QID #1 inhaler 10/20/20 Inhaler] Allergies Allergy/AdvReac Type Severity Reaction Status Date / Time No Known Allergies Allergy Verified 10/20/20 16:57 Review of Systems ROS Statement: Those systems with pertinent positive or pertinent negative responses have been documented in the HPI. ROS Other: All systems not noted in ROS Statement are negative. Past Medical History Past Medical History: Atrial Fibrillation Additional Past Medical History / Comment(s): parosymal afib - no meds. optic nerve swelling and headaches started in 2019--coming in for lumbar puncture 08/23/20 History of Any Multi-Drug Resistant Organisms: None Reported Past Surgical History: Tubal Ligation Past Anesthesia/Blood Transfusion Reactions: No Reported Reaction Past Psychological History: No Psychological Hx Reported Smoking Status: Never smoker Past Alcohol Use History: None Reported Past Drug Use History: None Reported - Past Family History Mother Family Medical History: Hypertension, Thyroid Disorder Father Family Medical History: Hyperlipidemia, Osteoarthritis (OA) General Exam Limitations: no limitations Course Vital Signs 10/20/20 10/20/20 10/20/20 16:55 19:36 19:37 Temperature 100.4 F H Pulse Rate 107 H 99 Respiratory 22 18 18 Rate Blood Pressure 117/70 O2 Sat by Pulse 96 98 Oximetry 10/20/20 20:04 Temperature 99.2 F Pulse Rate 103 H Respiratory 18 Rate Blood Pressure 115/51 O2 Sat by Pulse 95 Oximetry Medical Decision Making - Medical Decision Making Upon arrival patient is placed in room 25. Thorough history and physical exam was performed. Patient is talkative Covid which is positive. Chest x-ray demonstrates new bilateral patchy pneumonia. Patient does maintain saturations of 95-98% on room air without increased work of breathing. She was given a dose of Tylenol for her fever. Patient refusing BAM treatment at this time. She will be discharged home with a prescription for albuterol inhaler. Alternate taking Motrin and Tylenol for fever and pain. Quarantine until her symptoms improve. Follow up with her primary care doctor in 2-4 days. Return to the emergency room for any new or worsening symptoms. Patient was discharged home in stable condition - Lab Data Lab Results 10/20/20 Range/Units 17:00 Coronavirus (PCR) Detected A (Not Detectd) Disposition Clinical Impression: COVID-19, Shortness of breath Disposition: HOME SELF-CARE Condition: Stable Instructions (If sedation given, give patient instructions): Coronavirus Disease 2019 (COVID-19) Additional Instructions: Quarantine until your symptoms improve. Take Motrin and Tylenol alternating every 4 hours for fever. Use the inhaler every 4 hours for shortness of breath. Return to the ED for any new or worsening symptoms - specifically if your pulse ox falls below 90% Prescriptions: Albuterol Inhaler [Ventolin Hfa Inhaler] 2 puff INHALATION RT-QID #1 inhaler Albuterol Inhaler [Ventolin Hfa Inhaler] 2 puff INHALATION RT-QID #1 inhaler Is patient prescribed a controlled substance at d/c from ED?: No Referrals: None,Stated [Primary Care Provider] - 1-2 days Time of Disposition: 19:44
[2020-10-20 20:05] VITALS: BP 115/51; PULSE 103; TEMP 99.2
== END 2020-10-20 20:05 | disposition home or self-care (01) ==
LOC: EC 15:53
DX: U07.1 COVID-19 (principal); I48.91 Unspecified atrial fibrillation
CPT/HCPCS: 71046; 87635; 99285

== ENCOUNTER 2022-05-04 08:22 | Emergency (ER) | payer BC, OTHER ==
[2022-05-04 08:35] VITALS: TEMP 97.6
[2022-05-04 09:47] LABS: Basophils % (A) 0 %; Eosinophils # (A) 0.1 k/uL (0-0.7); Eosinophils % (A) 2 %; HCT 37.8 % (34.0-46.0); HGB 12.9 gm/dL (11.4-16.0); Lymphocytes # (A) 1.6 k/uL (1.0-4.8); Lymphocytes % (A) 24 %; MCHC 34.2 g/dL (31.0-37.0); MCV 90.7 fL (80.0-100.0); Mean Platelet Volume 8.2; Monocytes # (A) 0.3 k/uL (0-1.0); Monocytes % (A) 5 %; Neutrophils # (A) 4.7 k/uL (1.3-7.7); Neutrophils % (A) 68 %; Platelet Count 340 k/uL (150-450); RBC 4.16 m/uL (3.80-5.40); RDW 11.7 % (11.5-15.5); WBC 6.9 k/uL (3.8-10.6)
--- NOTE | 2022-05-04 09:51 | ED ---
General Adult HPI - General Chief complaint: Neuro Symptoms/Deficit Stated complaint: Right arm numbness Time Seen by Provider: 05/04/22 08:40 Source: patient Mode of arrival: ambulatory Limitations: no limitations - History of Present Illness Initial comments: 31-year-old female with past medical history of A. fib and pseudotumor cerebri who presents to the emergency department with right arm numbness. Reports that she has painful numbness that starts around the center of her bicep and radiates down into her hand. 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 Symptoms started approximately one hour prior to arrival. 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 Denies any recent repetitive movements of the upper extremity. Does admit to tenderness to palpation of the biceps. Did not take any medications for her symptoms. No history of stroke. No recent head trauma. Does have A. fib and pseudotumor. Reports to a history of hea daches and visual changes which led to the diagnosis of psuedotumor however has never had symptoms of arm pain/numbness. No concern for . No other alleviating, precipitating or modifying factors - Related Data Home Medications Medication Instructions Recorded Confirmed No Known Home Medications 05/04/22 05/04/22 Allergies Allergy/AdvReac Type Severity Reaction Status Date / Time No Known Allergies Allergy Verified 05/04/22 12:51 Review of Systems ROS Statement: Those systems with pertinent positive or pertinent negative responses have been documented in the HPI. ROS Other: All systems not noted in ROS Statement are negative. Past Medical History Past Medical History: Atrial Fibrillation Additional Past Medical History / Comment(s): parosymal afib - no meds. optic nerve swelling and headaches started in 2019--coming in for lumbar puncture 08/23/20 History of Any Multi-Drug Resistant Organisms: None Reported Past Surgical History: Tubal Ligation Past Anesthesia/Blood Transfusion Reactions: No Reported Reaction Past Psychological History: No Psychological Hx Reported Smoking Status: Never smoker Past Alcohol Use History: None Reported Past Drug Use History: None Reported - Past Family History Mother Family Medical History: Hypertension, Thyroid Disorder Father Family Medical History: Hyperlipidemia, Osteoarthritis (OA) General Exam Limitations: no limitations General appearance: alert, in no apparent distress Head exam: Present: atraumatic, normocephalic, normal inspection Eye exam: Present: normal appearance, PERRL, EOMI. Absent: scleral icterus, conjunctival injection, periorbital swelling ENT exam: Present: normal exam, mucous membranes moist Neck exam: Present: normal inspection. Absent: tenderness, meningismus, lymphadenopathy Respiratory exam: Present: normal lung sounds bilaterally. Absent: respiratory distress, wheezes, rales, rhonchi, stridor Cardiovascular Exam: Present: regular rate, normal rhythm, normal heart sounds. Absent: systolic murmur, diastolic murmur, rubs, gallop, clicks GI/Abdominal exam: Present: soft, normal bowel sounds. Absent: distended, tenderness, guarding, rebound, rigid Extremities exam: Present: tenderness (To palpation of the mid bicep on the right. 5 out of 5 electrician refinery strength bilaterally. Intact sensation over the medial, lateral dorsal forearms. 2+ radial and ulnar pulses.), normal capillary refill. Absent: pedal edema, joint swelling, calf tenderness Back exam: Present: normal inspection Neurological exam: Present: alert, oriented X3, CN II-XII intact Psychiatric exam: Present: normal affect, normal mood Skin exam: Present: warm, dry, intact, normal color. Absent: rash Course Vital Signs 05/04/22 05/04/22 08:32 12:26 Temperature 97.6 F Pulse Rate 73 86 Respiratory 20 18 Rate Blood Pressure 144/89 116/68 O2 Sat by Pulse 100 100 Oximetry EKG Findings - EKG Comments: EKG Findings:: EKG demonstrates sinus rhythm with a rate of 71. WA interval 130. QRS 83. QTC of 398. No acute ST segment elevations or depressions. Inverted T-wave lead 3 Medical Decision Making - Medical Decision Making Upon arrival patient was placed into ATP. Patient reports to a peripheral numbness which extends from the bicep down. Also reports to tenderness and pain to palpation of the bicep. No weakness appreciated. NIH is 0. Because the patient's history I did perform a thorough workup. CT and CT angiography is performed. No signs of ventricular enlargement, mass, CVA. Laboratory studies within normal limits. I did discuss the diagnosis and differential with the patient. At this time the patient's needs to follow up with her neurologist for further management of her symptoms. Strict return return for any new or worsening symptoms. Patient was agreeable to treatment plan and discharged in stable condition - Lab Data Result diagrams: 05/04/22 09:35 05/04/22 09:35 Lab Results 05/04/22 05/04/22 05/04/22 Range/Units 09:35 09:35 09:35 WBC 6.9 (3.8-10.6) k/uL RBC 4.16 (3.80-5.40) m/uL Hgb 12.9 (11.4-16.0) gm/dL Hct 37.8 (34.0-46.0) % MCV 90.7 (80.0-100.0) fL MCH 31.0 (25.0-35.0) pg MCHC 34.2 (31.0-37.0) g/dL RDW 11.7 (11.5-15.5) % Plt Count 340 (150-450) k/uL MPV 8.2 Neutrophils % 68 % Lymphocytes % 24 % Monocytes % 5 % Eosinophils % 2 % Basophils % 0 % Neutrophils # 4.7 (1.3-7.7) k/uL Lymphocytes # 1.6 (1.0-4.8) k/uL Monocytes # 0.3 (0-1.0) k/uL Eosinophils # 0.1 (0-0.7) k/uL Basophils # 0.0 (0-0.2) k/uL PT 10.4 (9.0-12.0) sec INR 0.9 (<1.2) APTT 28.4 (22.0-30.0) sec Sodium 138 (137-145) mmol/L Potassium 4.0 (3.5-5.1) mmol/L Chloride 103 (98-107) mmol/L Carbon Dioxide 24 (22-30) mmol/L Anion Gap 11 mmol/L BUN 15 (7-17) mg/dL Creatinine 0.68 (0.52-1.04) mg/dL Est GFR (CKD-EPI)AfAm >90 (>60 ml/min/1.73 sqM) Est GFR (CKD-EPI)NonAf >90 (>60 ml/min/1.73 sqM) Glucose 106 H (74-99) mg/dL Calcium 9.0 (8.4-10.2) mg/dL Total Bilirubin 0.4 (0.2-1.3) mg/dL AST 28 (14-36) U/L ALT 30 (4-34) U/L Alkaline Phosphatase 98 (38-126) U/L Troponin I (0.000-0.034) ng/mL Total Protein 7.4 (6.3-8.2) g/dL Albumin 4.5 (3.5-5.0) g/dL 05/04/22 Range/Units 09:35 WBC (3.8-10.6) k/uL RBC (3.80-5.40) m/uL Hgb (11.4-16.0) gm/dL Hct (34.0-46.0) % MCV (80.0-100.0) fL MCH (25.0-35.0) pg MCHC (31.0-37.0) g/dL RDW (11.5-15.5) % Plt Count (150-450) k/uL MPV Neutrophils % % Lymphocytes % % Monocytes % % Eosinophils % % Basophils % % Neutrophils # (1.3-7.7) k/uL Lymphocytes # (1.0-4.8) k/uL Monocytes # (0-1.0) k/uL Eosinophils # (0-0.7) k/uL Basophils # (0-0.2) k/uL PT (9.0-12.0) sec INR (<1.2) APTT (22.0-30.0) sec Sodium (137-145) mmol/L Potassium (3.5-5.1) mmol/L Chloride (98-107) mmol/L Carbon Dioxide (22-30) mmol/L Anion Gap mmol/L BUN (7-17) mg/dL Creatinine (0.52-1.04) mg/dL Est GFR (CKD-EPI)AfAm (>60 ml/min/1.73 sqM) Est GFR (CKD-EPI)NonAf (>60 ml/min/1.73 sqM) Glucose (74-99) mg/dL Calcium (8.4-10.2) mg/dL Total Bilirubin (0.2-1.3) mg/dL AST (14-36) U/L ALT (4-34) U/L Alkaline Phosphatase (38-126) U/L Troponin I <0.012 (0.000-0.034) ng/mL Total Protein (6.3-8.2) g/dL Albumin (3.5-5.0) g/dL Disposition Clinical Impression: Peripheral neuropathy, Pseudotumor Disposition: HOME SELF-CARE Condition: Stable Instructions (If sedation given, give patient instructions): Peripheral Neuropathy (ED) Additional Instructions: Please follow up with your neurologist for further evaluation of your symptoms. Return for any new or worsening symptoms . Is patient prescribed a controlled substance at d/c from ED?: No Referrals: Chely Macedo III, MD [Primary Care Provider] - 1-2 days Adelfo Noble DO [STAFF PHYSICIAN] - 1-2 days Time of Disposition: 12:45
[2022-05-04 09:57] LABS: INR 0.9 (<1.2); Partial Thromboplastin Time 28.4 sec (22.0-30.0); Prothrombin Time 10.4 sec (9.0-12.0)
[2022-05-04 09:58] LABS: ALT 30 U/L (4-34); AST 28 U/L (14-36); African American GFR (CKD) >90 (>60 ml/min/1.73 sqM); Albumin 4.5 g/dL (3.5-5.0); Alkaline Phosphatase 98 U/L (38-126); Anion Gap 11 mmol/L; Blood Urea Nitrogen 15 mg/dL (7-17); Carbon Dioxide 24 mmol/L (22-30); Chloride 103 mmol/L (98-107); Glucose 106 mg/dL (74-99); Non-African American GFR(CKD) >90 (>60 ml/min/1.73 sqM); Sodium 138 mmol/L (137-145); Total Bilirubin 0.4 mg/dL (0.2-1.3); Total Protein 7.4 g/dL (6.3-8.2)
--- NOTE | 2022-05-04 10:15 | CT ---
EXAMINATION TYPE: CT brain wo con CT DLP: 1114.6 mGycm, Automated exposure control for dose reduction was used. DATE OF EXAM: 05/04/2022 9:59 AM COMPARISON: CT brain 05/04/2022. CLINICAL INDICATION:Female, 31 years old with history of Neuro deficit, acute, stroke suspected, Rt a rm Numbness TECHNIQUE: Brain: Multiple axial CT images of the brain were obtained without IV contrast. Coronal and sagittal reformats reviewed. FINDINGS: Brain: Extra-axial spaces: No abnormal extra-axial fluid collections. Ventricular system: Within normal limits Cerebral parenchyma: No acute intraparenchymal hemorrhage or mass effect. The pemberton-white junction is well differentiated. Cerebellum: Unremarkable. Mass effect: No evidence of midline shift. Intracranial vasculature: unremarkable Soft tissues: Normal. Calvarium/osseous structures: No depressed skull fracture. Paranasal sinuses and mastoid air cells: Mild scattered paranasal sinus disease. Visualized orbits: Orbital contents are intact. IMPRESSION: No acute intracranial process.
--- NOTE | 2022-05-04 10:20 | XR ---
EXAMINATION TYPE: XR chest 2V DATE OF EXAM: 05/04/2022 COMPARISON: 10/20/2020 HISTORY: 31 year-old female right arm numbness, altered mental status, confusion. TECHNIQUE: PA and lateral views FINDINGS: Heart upper limits of normal in size, likely technical due to magnification from large body habitus. Previous bilateral patchy airspace opacity appears to have largely resolved. No pleural effusion. IMPRESSION: Previous bilateral infiltrates seen on 10/20/2020 have resolved. No acute process seen.
--- NOTE | 2022-05-04 10:39 | CT ---
EXAMINATION TYPE: CT angio head neck CT DLP: mGycm, Automated exposure control for dose reduction was used. DATE OF EXAM: 05/04/2022 10:27 AM COMPARISON: CT brain the same date.. CLINICAL INDICATION:Female, 31 years old with history of Neuro deficit, acute, stroke suspected; [facility], TECHNIQUE: Axially acquired helical CT angiogram of the head and neck was obtained with contrast util izing 75 cc of Isovue-370 administered intravenously. Axial images are supplemented with 3D reconstru ctions which were post-processed at an independent workstation. NASCET criteria used. FINDINGS: CTA HEAD: No evidence of acute intracranial hemorrhage, mass effect, or midline shift. The ventricles, sulci, a nd cisterns are unremarkable. The visualized portions of the internal carotid arteries, middle cerebral arteries, anterior cerebral arteries, and posterior cerebral arteries are patent. The basilar and vertebral arteries are patent. CTA NECK: Right Carotid System: The common carotid artery and external carotid artery are patent. The carotid bifurcation demonstrate s no evidence of hemodynamically significant stenosis. The remaining portions of the internal carotid artery demonstrate normal size without significant narrowing. Left Carotid System: The common carotid artery and external carotid artery are patent. The carotid bifurcation demonstrate s no evidence of hemodynamically significant stenosis. The remaining portions of the internal carotid artery demonstrate normal size without significant narrowing. Vertebral arteries are patent without evidence hemodynamically significant stenosis. There is a three-vessel aortic arch. The origins of the great vessels are patent. No evidence of hemo dynamically significant stenosis. IMPRESSION: 1. No evidence of dissection of the cervical internal carotid arteries or vertebral arteries or any e vidence of significant stenosis at the carotid bifurcations. 2. No evidence of high-grade stenosis or intracranial aneurysm.
[2022-05-04 12:27] VITALS: BP 116/68; PULSE 86; RESP 18
== END 2022-05-04 12:55 | disposition home or self-care (01) ==
LOC: EC 08:22
DX: G62.9 Polyneuropathy, unspecified (principal); G93.2 Benign intracranial hypertension; I48.91 Unspecified atrial fibrillation
CPT/HCPCS: 99284 ×2; 36415; 93005; 80053; 84484; 85025; 85610; 85730; 71046; 70496; 70450; 70498; Q9967

== ENCOUNTER 2024-03-05 14:33 | Emergency (ER) | payer BC ==
[2024-03-05] MEDS ORDERED: cefTRIAXone 1,000 MG VIAL (IM USE) IM ONE (16:14)
--- NOTE | 2024-04-08 14:13 | XR ---
Patient Radha Disla L ID [id number] Order # Procedure XR 2 VIEW CHEST EXAMINATION TYPE: XR chest 2V DATE OF EXAM: 03/06/2024 8:15 AM CLINICAL INDICATION: Cough congestion COMPARISON: THIS EXAM WAS READ DURING PACS DOWNTIME, NO PRIORS AVAILABLE. TECHNIQUE: XR chest 2V Frontal view of the chest. FINDINGS: Lungs/Pleura: Right lower lobe airspace opacities. There is no evidence of pleural effusion, focal co nsolidation, or pneumothorax. Pulmonary vascularity: Unremarkable. Heart/mediastinum: Cardiomediastinal silhouette is unremarkable. Musculoskeletal: No acute osseous pathology. IMPRESSION: Right lower lobe airspace opacities correlate for pneumonia. Consider short-term follow-up to ensure resolution.
== END 2024-03-05 16:44 | disposition home or self-care (01) ==
LOC: EC 14:33
DX: J18.9 Pneumonia, unspecified organism (principal)
CPT/HCPCS: 71046; 96372; 99284

== ENCOUNTER 2024-11-27 20:12 | Inpatient (IN) | payer BC ==
[2024-11-27] MEDS: MORPHINE SULFATE 4 MG/ML SYRINGE IVP PRN (21:05)
--- NOTE | 2024-11-27 21:06 | ED ---
General Adult HPI - General Chief complaint: Abdominal Pain Stated complaint: abd pain Time Seen by Provider: 11/27/24 20:49 Source: patient Mode of arrival: ambulatory Limitations: no limitations - History of Present Illness Initial comments: Dictation was produced using [employer] dictation software. please excuse any grammatical, word or spelling errors. Chief Complaint: 34-year-old presents with right lower quadrant pain History of Present Illness: 34-year-old female presents emergency department 1 day history of right lower quadrant pain. States that her symptoms began as periumbilical ache that shifted down to the right lower quadrant. Patient states that pain is severe. She does report fever nausea and poor appetite. Denies any vomiting. Patient denies any history of abdominal surgery. She has a history of bilateral tubal ligation. The ROS documented in this emergency department record has been reviewed and confirmed by me. Those systems with pertinent positive or negative responses have been documented in the HPI. All other systems are other negative and/or noncontributory. - Related Data Home Medications Medication Instructions Recorded Confirmed No Known Home Medications 05/04/22 05/04/22 Allergies Allergy/AdvReac Type Severity Reaction Status Date / Time No Known Allergies Allergy Verified 11/27/24 20:19 Review of Systems ROS Statement: Those systems with pertinent positive or pertinent negative responses have been documented in the HPI. ROS Other: All systems not noted in ROS Statement are negative. Past Medical History Past Medical History: Atrial Fibrillation Additional Past Medical History / Comment(s): parosymal afib - no meds. optic nerve swelling and headaches started in 2019--coming in for lumbar puncture 08/23/20 History of Any Multi-Drug Resistant Organisms: None Reported Past Surgical History: Tubal Ligation Past Anesthesia/Blood Transfusion Reactions: No Reported Reaction Past Psychological History: No Psychological Hx Reported Smoking Status: Never smoker Past Alcohol Use History: None Reported Past Drug Use History: None Reported - Past Family History Mother Family Medical History: Hypertension, Thyroid Disorder Father Family Medical History: Hyperlipidemia, Osteoarthritis (OA) General Exam - General Exam Comments Initial Comments: PHYSICAL EXAM: General Impression: Alert and oriented x3, not in acute distress HEENT: Normocephalic atraumatic, extra-ocular movements intact, pupils equal and reactive to light bilaterally, mucous membranes moist. Cardiovascular: Heart regular rate and rhythm Chest: Able to complete full sentences, no retractions, no tachypnea Abdomen: abdomen soft, pain in McBurney's point, positive rebound tenderness, non-distended, no organomegaly Musculoskeletal: Pulses present and equal in all extremities, no peripheral edema Motor: no focal deficits noted Neurological: CN II-XII grossly intact, no focal motor or sensory deficits noted Skin: Intact with no visualized rashes Psych: Normal affect and mood Limitations: no limitations Course Vital Signs 11/27/24 11/27/24 20:16 22:29 Temperature 100.2 F H 98.5 F Pulse Rate 133 H Respiratory 20 Rate Blood Pressure 147/100 O2 Sat by Pulse 98 Oximetry Medical Decision Making - Medical Decision Making Was pt. sent in by a medical professional or institution (, PA, DIRECTOR OF RETENTION, urgent care, hospital, or halfway...) When possible be specific @ -No Did you speak to anyone other than the patient for history (EMS, parent, family, police, friend...)? What history was obtained from this source @ -No Did you review nursing and triage notes (agree or disagree)? Why? @ -I reviewed and agree with nursing and triage notes Were old charts reviewed (outside hosp., previous admission, EMS record, old EKG, old radiological studies, urgent care reports/EKG's, halfway records)? Report findings @ -No old charts were reviewed Differential Diagnosis (chest pain, altered mental status, abdominal pain women, abdominal pain men, vaginal bleeding, musculoskeletal, weakness, fever, dyspnea, syncope, headache, dizziness, GI bleed, back pain, seizure, CVA, palpatations, mental health)? @ -Differential Abdominal Pain Women: Appendicitis, Cholecystitis, diverticulosis, ischemic bowel, pancreatitis, hepatitis, UTI, gastroenteritis, AAA, incarcerated hernia, bowel obstruction, constipation, inflammatory bowel, hepatitis, peptic ulcer disease, splenic infarction, perforated viscus, vulvitis, ovarian torsion, PID, kidney stone, placenta abruption, this is not meant to be an all-inclusive list EKG interpreted by me (3pts min.). @ -None done X-rays interpreted by me (1pt min.). @ -None done CT interpreted by me (1pt min.). @ -CT shows appendicitis U/S interpreted by me (1pt. min.). @ -None done What testing was considered but not performed or refused? (CT, X-rays, U/S, labs)? Why? @ -None What meds were considered but not given or refused? Why? @ -None Was smoking cessation discussed for >3mins.? @ -No Were there social determinants of health that impacted care today? How? (H omelessness, low income, unemployed, alcoholism, drug addiction, transportation, low edu. Level, literacy, decrease access to med. care, prison, rehab)? @ -No Was there de-escalation of care discussed even if they declined (Discuss DNR or withdrawal of care, Hospice)? DNR status @ -No What co-morbidities impacted this encounter? (DM, HTN, Smoking, COPD, CAD, Cancer, CVA, ARF, Chemo, Hep., AIDS, mental health diagnosis, sleep apnea, morbid obesity)? @ -None Was patient admitted / discharged? Hospital course, mention meds given and route, prescriptions, significant lab abnormalities, going to OR and other pertinent info. @ -34-year-old female with acute appendicitis. Vital signs shows low-grade temperature. Heart rate 133. Physical examination consistent with pain at McBurney's point. Leukocytosis 16.06. Rest of labs unremarkable. CT abdomen pelvis shows acute appendicitis. Case discussed with general surgery who will likely take patient for surgery tomorrow morning. Did you discuss the management of the patient with other professionals (professionals i.e. , PA, DIRECTOR OF RETENTION, lab, RT, psych nurse, manager social services, cmm programmer, teacher, compliance officer, rn field case manager)? Give summary @ -Above Was critical care preformed (if so, how long)? @ -No Undiagnosed new problem with uncertain prognosis? @ -No Drug Therapy requiring intensive monitoring for toxicity (Heparin, Nitro, Insulin, Cardizem)? @ -No Were any procedures done? @ -No Diagnosis/symptom? Acute, or Chronic, or Acute on Chronic? Uncomplicated (without systemic symptoms) or Complicated (systemic symptoms)? @ -Acute appendicitis Side effects of treatment? @ -No Exacerbation, Progression, or Severe Exacerbation? @ -No Poses a threat to life or bodily function? How? (Chest pain, [place], [place], pneumonia, PE, COPD, DKA, ARF, appy, cholecystitis, CVA, Diverticulitis, Homicidal, Suicidal, threat to staff... and all critical care pts) @ -yes - Lab Data Result diagrams: 11/27/24 21:02 11/27/24 21:02 Lab Results 11/27/24 11/27/24 11/27/24 Range/Units 21:02 21:02 21:02 WBC 16.06 H (4.50-10.00) 10*3/uL RBC 4.16 (4.10-5.20) 10*6/uL Hgb 12.7 (12.0-15.0) g/dL Hct 36.8 L (37.2-46.3) % MCV 88.5 (80.0-97.0) fL MCH 30.5 (27.0-32.0) pg MCHC 34.5 (32.0-37.0) g/dL Plt Count 347 (140-440) 10*3/uL MPV 10.5 (9.5-12.2) fL Immature Gran % (Auto) 0.4 % Neutrophils % 85.6 % Lymphocytes % 8.5 % Monocytes % 5.2 % Eosinophils % 0.1 % Basophils % 0.2 % Immature Gran # 0.06 H (0.00-0.04) 10*3/uL Neutrophils # 13.74 H (1.80-7.70) 10*3/uL Lymphocytes # 1.37 (0.90-5.00) 10*3/uL Monocytes # 0.84 (0.20-1.00) 10*3/uL Eosinophils # 0.02 L (0.04-0.35) 10*3/uL Basophils # 0.03 (0.00-0.10) 10*3/uL PT 11.0 (10.0-12.5) sec INR 1.0 (<1.2) APTT 28.5 (22.0-30.0) sec Sodium 138 (137-145) mmol/L Potassium 3.8 (3.5-5.1) mmol/L Chloride 106 (98-107) mmol/L Carbon Dioxide 21 L (22-30) mmol/L Anion Gap 11 mmol/L BUN 7 (7-17) mg/dL Creatinine 0.64 (0.52-1.04) mg/dL Est GFR (CKD-EPI)AfAm >90 (>60 ml/min/1.73 sqM) Est GFR (CKD-EPI)NonAf >90 (>60 ml/min/1.73 sqM) Glucose 127 H (74-99) mg/dL Calcium 9.8 (8.4-10.2) mg/dL Total Bilirubin 1.1 (0.2-1.3) mg/dL AST 31 (14-36) U/L ALT 29 (4-34) U/L Alkaline Phosphatase 73 (38-126) U/L Total Protein 7.7 (6.3-8.2) g/dL Albumin 4.5 (3.5-5.0) g/dL Disposition Clinical Impression: Acute appendicitis Disposition: ADMITTED IP TO THIS HOSP Condition: Fair Decision Time: 22:05
[2024-11-27 21:23] LABS: Basophils # (A) 0.03 10*3/uL (0.00-0.10); Basophils % (A) 0.2 %; Eosinophils # (A) 0.02 10*3/uL (0.04-0.35); Eosinophils % (A) 0.1 %; HCT 36.8 % (37.2-46.3); HGB 12.7 g/dL (12.0-15.0); Lymphocytes # (A) 1.37 10*3/uL (0.90-5.00); Lymphocytes % (A) 8.5 %; MCH 30.5 pg (27.0-32.0); MCHC 34.5 g/dL (32.0-37.0); MCV 88.5 fL (80.0-97.0); Mean Platelet Volume 10.5 fL (9.5-12.2); Monocytes # (A) 0.84 10*3/uL (0.20-1.00); Monocytes % (A) 5.2 %; Neutrophils # (A) 13.74 10*3/uL (1.80-7.70); Neutrophils % (A) 85.6 %; Platelet Count 347 10*3/uL (140-440); RBC 4.16 10*6/uL (4.10-5.20); RDW 12.1 % (11.5-14.5); WBC 16.06 10*3/uL (4.50-10.00)
[2024-11-27] MEDS: SODIUM CHLORIDE 0.9% 1,000 ML IV STA (21:32)
[2024-11-27] MEDS: ACETAMINOPHEN IV (For NPO) 1,000 MG in EMPTY BAG 1 BAG IVPB STA (21:32)
[2024-11-27 21:36] LABS: ALT 29 U/L (4-34); African American GFR (CKD) >90 (>60 ml/min/1.73 sqM); Albumin 4.5 g/dL (3.5-5.0); Anion Gap 11 mmol/L; Blood Urea Nitrogen 7 mg/dL (7-17); Calcium 9.8 mg/dL (8.4-10.2); Carbon Dioxide 21 mmol/L (22-30); Chloride 106 mmol/L (98-107); Glucose 127 mg/dL (74-99); Non-African American GFR(CKD) >90 (>60 ml/min/1.73 sqM); Partial Thromboplastin Time 28.5 sec (22.0-30.0); Sodium 138 mmol/L (137-145); Total Bilirubin 1.1 mg/dL (0.2-1.3); Total Protein 7.7 g/dL (6.3-8.2)
[2024-11-27 21:39] LABS: AST 31 U/L (14-36); Alkaline Phosphatase 73 U/L (38-126); Potassium 3.8 mmol/L (3.5-5.1)
[2024-11-27] MEDS ORDERED: ACETAMINOPHEN TAB 325 MG TAB PO PRN (21:52)
[2024-11-27] MEDS ORDERED: NALOXONE 0.4 MG/ML 1 ML VIAL IV PRN (21:52)
[2024-11-27] MEDS: metroNIDAZOLE-NS PMX 500 MG in SALINE 1 100ML.BAG IVPB STA (22:22)
[2024-11-27] MEDS: SODIUM CHLORIDE 0.9% 1,000 ML IV SCH (22:33)
--- NOTE | 2024-11-27 22:46 | CT ---
EXAMINATION TYPE: CT abdomen pelvis w con DATE OF EXAM: 11/27/2024 9:24 PM COMPARISON: None. CLINICAL INDICATION: Female, 34 years old with history of rlq pain, RLQ pain TECHNIQUE: Axial images were obtained from above the diaphragm to the pubic rami in the axial plane a t 5 mm thick sections. Reconstructed images are reviewed on the computer in the coronal plane. CONTRAST: 100 mL of Isovue 300. Study performed without Oral Contrast DLP: 2584 mGycm, Automated exposure control for dose reduction was used. FINDINGS: Limited CT sections are obtained the lung bases. The lung bases are clear. CT ABDOMEN: Liver: Some mild fatty infiltration is not excluded. Spleen: Normal Pancreas: Normal Adrenal glands: The adrenal glands are normal. Gallbladder: Normal Kidneys: No masses are evident. No hydronephrosis is present. No cysts are present. Delayed images were obtained through the kidneys, which remain unremarkable. Aorta: Vascular calcification is within the aorta. Inferior vena cava: Normal. CT PELVIS: Loops of bowel within the abdomen and pelvis are normal. There are loops of bowel which are incom pletely distended or lack oral contrast limiting their evaluation. Appendix: Inflammatory changes are in the right lower quadrant. The appendix appears dilated. Correla te for acute appendicitis. No abscess formation or free air is identified. Urinary bladder: Decompressed and cannot be evaluated Genitourinary structures: Uterus and adnexa appear normal Osseous structures: No suspicious lytic or sclerotic lesions. IMPRESSION: 1. Dilated appendix with inflammatory changes in the right lower quadrant. Correlate for acute appen dicitis. [facility], Workstation: [facility], 11/27/2024 10:44 PM
[2024-11-27] MEDS: PIPERACILLIN-TAZOBACTAM 3.375 GM in SODIUM CHLORIDE 0.9% 100 ML IVPB SCH (23:34)
[2024-11-28] MEDS: MORPHINE SULFATE 4 MG/ML SYRINGE IV PRN (06:20)
[2024-11-28] MEDS: IV FLUID CONTINUATION 1,000 ML IV ONE (07:55)
[2024-11-28] MEDS: droPERidol 2.5 MG/ML VIAL IVP STA (08:24)
[2024-11-28] MEDS: DEXAMETHASONE SOD PHOSPHATE 4 MG/ML 1 ML VIAL IVP STA (08:25)
[2024-11-28] MEDS: HEPARIN SODIUM,PORCINE 5,000 UNIT/ML 1 ML VIAL SQ STA (08:25)
[2024-11-28] MEDS: ONDANSETRON 4 MG/2 ML VIAL IVP PRN (08:26)
[2024-11-28] MEDS: ACETAMINOPHEN TAB 500 MG TAB PO STA (08:27)
[2024-11-28] MEDS ORDERED: SUCCINYLCHOLINE CHLORIDE 200 MG/10 ML VIAL IV ONE (09:30)
[2024-11-28] MEDS ORDERED: GLYCOPYRROLATE 0.2 MG/ML 2 ML VIAL ONE (09:30)
[2024-11-28] MEDS ORDERED: PROPOFOL 10 MG/ML 20 ML VIAL IV ONE (09:30)
[2024-11-28] MEDS ORDERED: ROCURONIUM 10 MG/ML (5 ML VIAL) IV ONE (09:30)
[2024-11-28] MEDS ORDERED: NEOSTIGMINE 1 MG/ML 10 ML VIAL ONE (09:30)
[2024-11-28] MEDS ORDERED: KETOROLAC 15 MG/ML 1 ML VIAL ONE (09:30)
[2024-11-28] MEDS ORDERED: LIDOCAINE 1% INJ 10MG/ML (20 ML MDV) ONE (09:30)
[2024-11-28] MEDS ORDERED: MIDAZOLAM 2 MG/2 ML VIAL ONE (09:30)
[2024-11-28] MEDS ORDERED: fentaNYL (PF) 50 MCG/ML 2 ML AMP ONE (09:30)
[2024-11-28] MEDS: ceFAZolin 1,000 MG VIAL IVPB ONE (09:35)
--- NOTE | 2024-11-28 09:36 | P.GSHP ---
History of Present Illness H&P Date: 11/28/24 Chief Complaint: Acute appendicitis 34-year-old female presents to the hospital with a 2-day history of right lower quadrant abdominal pain. This is associate with nausea and a decreased appetite. No vomiting. [place] slightly feverish at home and had a temp of 100.3 last night in the ER. White blood cell count elevated. Patient had a CAT scan showing evidence of inflammatory changes around a inflamed appendix. There is a small foci of air adjacent to the tip of the appendix may be extraluminal. Patient does feel better today. Was started on Zosyn and Flagyl last night. No history of similar events. - Review of Systems Comment: The patient denies any acute changes in vision or hearing, no dysphagia or odynophagia, no chest pain or shortness of breath, no dysuria or hematuria, no headache, no runny nose, no rectal bleeding or melena, no unexplained weight loss Past Medical History Past Medical History: Atrial Fibrillation Additional Past Medical History / Comment(s): parosymal afib - no meds. optic nerve swelling and headaches started in 2019--coming in for lumbar puncture 08/23/20 History of Any Multi-Drug Resistant Organisms: None Reported Past Surgical History: Tubal Ligation Past Anesthesia/Blood Transfusion Reactions: No Reported Reaction Past Psychological History: No Psychological Hx Reported Smoking Status: Never smoker Past Alcohol Use History: None Reported Past Drug Use History: None Reported - Past Family History Mother Family Medical History: Hypertension, Thyroid Disorder Father Family Medical History: Hyperlipidemia, Osteoarthritis (OA) Medications and Allergies Home Medications Medication Instructions Recorded Confirmed Type No Known Home Medications 05/04/22 11/28/24 History Allergies Allergy/AdvReac Type Severity Reaction Status Date / Time No Known Allergies Allergy Verified 11/28/24 08:17 Surgical - Exam Vital Signs Temp Pulse Resp BP Pulse Ox 100.2 F H 133 H 20 147/100 98 11/27/24 20:16 11/27/24 20:16 11/27/24 20:16 11/27/24 20:16 11/27/24 20:16 Physical exam: General: Well-developed, well-nourished HEENT: Normocephalic, sclerae nonicteric Abdomen: Right lower quadrant tenderness present nondistended Extremities: No edema Neuro: Alert and oriented Results - Labs 11/27/24 21:02 11/27/24 21:02 Abnormal Lab Results - Last 24 Hours (Table) 11/27/24 11/27/24 Range/Units 21:02 21:02 WBC 16.06 H (4.50-10.00) 10*3/uL Hct 36.8 L (37.2-46.3) % Immature Gran # 0.06 H (0.00-0.04) 10*3/uL Neutrophils # 13.74 H (1.80-7.70) 10*3/uL Eosinophils # 0.02 L (0.04-0.35) 10*3/uL Carbon Dioxide 21 L (22-30) mmol/L Glucose 127 H (74-99) mg/dL Diabetes panel 11/27/24 Range/Units 21:02 Sodium 138 (137-145) mmol/L Potassium 3.8 (3.5-5.1) mmol/L Chloride 106 (98-107) mmol/L Carbon Dioxide 21 L (22-30) mmol/L BUN 7 (7-17) mg/dL Creatinine 0.64 (0.52-1.04) mg/dL Glucose 127 H (74-99) mg/dL Calcium 9.8 (8.4-10.2) mg/dL AST 31 (14-36) U/L ALT 29 (4-34) U/L Alkaline Phosphatase 73 (38-126) U/L Total Protein 7.7 (6.3-8.2) g/dL Albumin 4.5 (3.5-5.0) g/dL Calcium panel 11/27/24 Range/Units 21:02 Calcium 9.8 (8.4-10.2) mg/dL Albumin 4.5 (3.5-5.0) g/dL Pituitary panel 11/27/24 Range/Units 21:02 Sodium 138 (137-145) mmol/L Potassium 3.8 (3.5-5.1) mmol/L Chloride 106 (98-107) mmol/L Carbon Dioxide 21 L (22-30) mmol/L BUN 7 (7-17) mg/dL Creatinine 0.64 (0.52-1.04) mg/dL Glucose 127 H (74-99) mg/dL Calcium 9.8 (8.4-10.2) mg/dL Adrenal panel 11/27/24 Range/Units 21:02 Sodium 138 (137-145) mmol/L Potassium 3.8 (3.5-5.1) mmol/L Chloride 106 (98-107) mmol/L Carbon Dioxide 21 L (22-30) mmol/L BUN 7 (7-17) mg/dL Creatinine 0.64 (0.52-1.04) mg/dL Glucose 127 H (74-99) mg/dL Calcium 9.8 (8.4-10.2) mg/dL Total Bilirubin 1.1 (0.2-1.3) mg/dL AST 31 (14-36) U/L ALT 29 (4-34) U/L Alkaline Phosphatase 73 (38-126) U/L Total Protein 7.7 (6.3-8.2) g/dL Albumin 4.5 (3.5-5.0) g/dL Assessment and Plan (1) Acute appendicitis Narrative/Plan: 34-year-old female with acute appendicitis. Clinical scenario discussed with the patient and her family. Will proceed with laparoscopic, possible open appendectomy at this time. Risks of bleeding, infection, leak, abscess, bladder and bowel injury, hernia, conversion to an open procedure discussed. She understands and wishes to proceed. Current Visit: Yes Status: Acute Code(s): K35.80 - UNSPECIFIED ACUTE APPENDICITIS SNOMED Code(s): 61011505
[2024-11-28] MEDS: BUPIVACAINE (PF) 0.5% 30 ML VIAL SQ ONE (09:58)
[2024-11-28] MEDS ORDERED: METOCLOPRAMIDE 5 MG/ML 2 ML VIAL IVP PRN (10:52)
[2024-11-28] MEDS ORDERED: traMADol 50 MG TAB PO PRN (10:52)
[2024-11-28] MEDS ORDERED: HYDROmorphone 1 MG/ML 1 ML SYRINGE IVP PRN (10:52)
[2024-11-28] MEDS ORDERED: HYDROmorphone 0.5 MG/0.5 ML SYRINGE IVP PRN (10:52)
--- NOTE | 2024-11-28 10:55 | P.OP ---
Date of Procedure: 11/28/24 Procedure(s) Performed: PREOPERATIVE DIAGNOSIS: Acute appendicitis POSTOPERATIVE DIAGNOSIS: Same PROCEDURE: Laparoscopic appendectomy SURGEON: Cher EBL: 10 cc ANESTHESIA: General COMPLICATIONS: None OPERATIVE PROCEDURE: The patient was brought and placed on the operating table in the supine position. The patient was placed under general anesthesia. The abdomen was prepped and draped in the usual sterile fashion. A small vertical infraumbilical incision was made. The fascia was retracted anteriorly with Genesis forceps. The Veress needle was advanced into the peritoneal cavity. The saline drop test was normal. Insufflation took place to 15 mmHg. A 5 mm trocar was then placed. An additional 5 mm suprapubic trocar was placed under direct visualization as well as a 12 mm left lower quadrant trocar under direct visualization. The appendix was inspected. It was acutely inflamed. There were some gangrenous changes to the tip of the appendix. No xochitl purulence was noted. Localized peritonitis was present. The mesoappendix was dissected. The base of the appendix was divided using a linear 45 mm intestinal stapler. The mesentery itself was divided using ligature. The area was then irrigated. No further purulence or bleeding was seen. The appendix was brought out of the peritoneal cavity through the left lower quadrant trocar site with an Endo Catch bag. The fascia at the 12 mm site was closed using a Nathaniel-Dar 0 Vicryl stitch. The skin at all 3 sites was closed using 4-0 Monocryl sutures. Skin glue was then applied. DISPOSITION: Stable to recovery room
[2024-11-28] MEDS: metroNIDAZOLE-NS PMX 500 MG in SALINE 1 100ML.BAG IVPB SCH (11:08)
[2024-11-28] MEDS: droPERidol 2.5 MG/ML VIAL IVP ONE (12:10)
[2024-11-28] MEDS: KETOROLAC 15 MG/ML 1 ML VIAL IVP SCH (12:16)
[2024-11-28] MEDS: PIPERACILLIN-TAZOBACTAM 3.375 GM in SODIUM CHLORIDE 0.9% 100 ML IVPB SCH (13:26)
[2024-11-28] MEDS: HYDROcodone/APAP 5-325MG 1 EACH TAB PO PRN (15:12)
[2024-11-28] MEDS: HEPARIN SODIUM,PORCINE 5,000 UNIT/ML 1 ML VIAL SQ SCH (17:34)
[2024-11-29] MEDS: PANTOPRAZOLE 40 MG/10 ML VIAL IV SCH (09:14)
[2024-11-29 10:38] LABS: Basophils # (A) 0.02 X 10*3/uL (0.00-0.10); Basophils % (A) 0.1 %; Eosinophils # (A) 0 X 10*3/uL (0.04-0.35); Eosinophils % (A) 0 %; HGB 10.1 g/dL (12.0-15.0); MCH 29.3 pg (27.0-32.0); MCHC 31.6 g/dL (32.0-37.0); MCV 92.8 FL (80.0-97.0); Mean Platelet Volume 11.6 FL (9.5-12.2); Monocytes % (A) 4.4 %; NRBC Per 100 WBC 0 X 10*3/uL (0.00-0.01); Neutrophils # (A) 11.92 X 10*3/uL (1.80-7.70); Neutrophils % (A) 87.1 %; Platelet Count 274 X 10*3/uL (140-440); RBC 3.45 X 10*6/uL (4.10-5.20); RDW 12.2 % (11.5-14.5)
[2024-11-29] MEDS: SODIUM CHLORIDE 0.9% 1,000 ML IV ONE (10:40)
--- NOTE | 2024-11-29 10:43 | P.PN ---
Subjective Progress Note Date: 11/29/24 Principal diagnosis: Acute appendicitis Patient feels relatively well today. Has been having some issues with possible urinary retention. Straight cath was unsuccessful at emptying any significant volume of urine. Patient does states she feels a little bit dry. She is drinki ng and eating some solid foods today however. Pain is improved. No fevers. Awaiting labs. Objective - Vital Signs Vital signs: Vital Signs Temp 98.0 F 11/29/24 07:32 Pulse 76 11/29/24 07:32 Resp 17 11/29/24 07:32 BP 105/69 11/29/24 07:32 Pulse Ox 96 11/29/24 07:32 FiO2 Intake & Output 11/28/24 11/29/24 11/29/24 18:59 06:59 18:59 Intake Total 800 540 Output Total 10 20 Balance 790 520 Weight 133 kg Intake: IV 800 Oral 540 Output: Urine 20 Straight 20 Estimated Blood Loss 10 Other: Voiding Method Toilet Toilet # Voids 1 2 - Exam Abdomen: Soft, nondistended, incisions clean and dry, mild tenderness - Labs CBC & Chem 7: 11/29/24 04:50 11/27/24 21:02 Labs: Abnormal Lab Results - Last 24 Hours (Table) 11/29/24 Range/Units 04:50 WBC 13.70 H (4.50-10.00) X 10*3/uL RBC 3.45 L (4.10-5.20) X 10*6/uL Hgb 10.1 L (12.0-15.0) g/dL Hct 32.0 L (37.2-46.3) % MCHC 31.6 L (32.0-37.0) g/dL Immature Gran # 0.06 H (0.00-0.04) X 10*3/uL Neutrophils # 11.92 H (1.80-7.70) X 10*3/uL Eosinophils # 0 L (0.04-0.35) X 10*3/uL Assessment and Plan (1) Acute appendicitis Narrative/Plan: Patient doing relatively well after laparoscopic appendectomy yesterday. Will bolus 1 L of saline and monitor urine output today. If there is still issues with possible urinary retention will attempt straight cath a second time. Do not believe bladder scan reliable given the abdominal wall thickness. Current Visit: Yes Status: Acute Code(s): K35.80 - UNSPECIFIED ACUTE APPENDICITIS SNOMED Code(s): 47666053
[2024-11-29 14:13] LABS: Appearance,Urine Turbid (Clear); Bilirubin,Urine Negative (Negative); Blood,Urine Small (Negative); Color,Urine Yellow; Glucose,Urine (UA) Negative (Negative); Ketones,Urine 1+ (Negative); Leukocyte Esterase,Urine Large (Negative); Mucus,Urine Few /hpf; Nitrite,Urine Negative (Negative); Protein,Urine 1+ (Negative); RBC,Urine 19 /hpf (0-5); Specific Gravity,Urine 1.041 (1.001-1.035); Squamous Epithelial Cell,Urine 40 /hpf (0-4); Urobilinogen,Urine <2.0 mg/dL (<2.0); WBC,Urine 28 /hpf (0-5)
[2024-11-30 07:50] VITALS: BP 134/84; PULSE 77; RESP 15; TEMP 98.1
--- NOTE | 2024-11-30 11:37 | P.DS ---
Providers Date of admission: 11/27/24 21:53 Expected date of discharge: 11/30/24 Attending physician: Porfirio Kwon Primary care physician: Dontrell Bangura - Discharge Diagnosis(es) (1) Acute appendicitis 34-year-old female admitted for acute appendicitis. Patient underwent laparoscopic appendectomy 2 days ago. Yesterday the patient's urine output was somewhat low. Improved with IV bolus. Urinalysis and urine culture obtained. Culture results pending. Doing better this morning. Mild discomfort. Ambulating in the hallways. Tolerating regular diet. Abdominal exam reveals incisions that are clean and dry. Mild ecchymosis left lower quadrant. White blood cell count yesterday improved from 16-13. She would like to go home. Will plan discharge on oral antibiotics. Follow-up 1 week. Current Visit: Yes Status: Acute Patient Condition at Discharge: Fair Plan - Discharge Summary Discharge Rx Participant: No New Discharge Prescriptions: New Amoxic-Pot Clav 875-125Mg [Augmentin 875-125] 1 tab PO BID 5 Days #10 tab HYDROcodone/APAP 5-325MG [[place] 5-325] 1 tab PO Q6HR PRN 3 Days #7 tab PRN Reason: Analgesia Discharge Medication List Amoxic-Pot Clav 875-125Mg [Augmentin 875-125] 1 tab PO BID 5 Days #10 tab 11/29/24 [Rx] HYDROcodone/APAP 5-325MG [[place] 5-325] 1 tab PO Q6HR PRN 3 Days #7 tab 11/29/24 [Rx] Follow up Appointment(s)/Referral(s): Porfirio Kwon MD [Medical Doctor] - 1 Week Dontrell Bangura DO [Primary Care Provider] - 1-2 days
== END 2024-11-30 13:08 | disposition home or self-care (01) | DRG 399 ==
LOC: EC 20:12 → 4SSUR 21:53
PROVIDERS: ADMIT Surgery; ATTEND Surgery
PROC: 0DTJ4ZZ Resection of Appendix, Percutaneous Endoscopic Approach (ICD-10-PCS; principal; 2024-11-28 14:10)
DX: K35.30 Acute appendicitis with localized peritonitis, without perforation or gangrene (principal); R58 Hemorrhage, not elsewhere classified; I48.0 Paroxysmal atrial fibrillation; Z98.51 Tubal ligation status; Z82.49 Family history of ischemic heart disease and other diseases of the circulatory system
CPT/HCPCS: 36415; 74177; 80053; 81001; 81025; 85025; 85610; 85730; 87086; 88304; 96365; 96367; 96375; 99285